=== PATIENT | male | born 1955 | race Two or more races ===

== ENCOUNTER 2024-05-04 15:52 | Inpatient (IN) | payer OTHER ==
[~2024-05-04] VITALS: Ht 180.3 cm; Wt 77.4 kg
[2024-05-04] MEDS: SODIUM CHLORIDE 0.9% 1,000 ML IVB ONE (16:07)
[2024-05-04 16:08] VITALS: PULSE 95; RESP 35; O2SAT 95
[2024-05-04 17:35] LABS: Chloride 112 mmol/L (98-107); Sodium 143 mmol/L (136-145)
[2024-05-04 17:36] LABS: Anion Gap 8 (5-15); Calcium 8.9 mg/dL (8.7-10.4); Carbon Dioxide 23 mmol/L (20-31)
[2024-05-04 17:41] LABS: BUN/Creatinine Ratio 17.4 (10.0-20.0); Blood Urea Nitrogen 30 mg/dL (9-23); Glucose 129 mg/dL (74-106)
[2024-05-04 17:42] LABS: Blood Alcohol < 3.0 mg/dL (<10)
[2024-05-04 17:45] LABS: Basophils # (auto) 0.1 10 ^3/uL (0-0.2); Basophils % (auto) 0.4 % (0.0-2.0); Eosinophils # (auto) 0 10 ^3/uL (0-0.8); Eosinophils % (auto) 0.2 % (0.0-7.0); Hematocrit 37.2 % (41.0-53.0); Hemoglobin 12.8 g/dL (13.5-17.5); Lymphocytes # (auto) 0.8 10 ^3/uL (0.4-5.4); Lymphocytes % (auto) 4.3 % (10.0-50.0); Mean Corpuscular Hemoglobin 31.1 pg (28.0-32.0); Mean Corpuscular Hgb Conc. 34.5 g/dL (32.0-36.0); Mean Corpuscular Volume 90.1 fL (80.0-100.0); Monocytes # (auto) 0.6 10 ^3/uL (0-1.3); Monocytes % (auto) 3.5 % (0.0-12.0); Neutrophils # (auto) 16.1 10 ^3/uL (1.6-8.6); Neutrophils % (auto) 91.6 % (37.0-80.0); Platelet Count (auto) 238 10^3/uL (140-450); Red Blood Cells 4.13 10^6/uL (4.5-5.90); Red Cell Distribution Width 14.1 % (11.8-14.3); White Blood Cell 17.6 10^3/uL (4.4-10.8)
[2024-05-04] MEDS ORDERED: ACETAMINOPHEN 325 MG TAB PO PRN (19:00)
[2024-05-04] MEDS: SODIUM CHLORIDE 0.9% 1,000 ML IV SCH (19:33)
[2024-05-04] MEDS ORDERED: hydrALAZINE HCL 20 MG/ML VL IV PRN (19:45)
[2024-05-04 20:00] VITALS: PULSE 67; RESP 19; O2SAT 96
[2024-05-04] MEDS: cefTRIAXone 1GM/50ML D5W 50 ML IV ONE (21:18)
[2024-05-04 22:22] VITALS: BP 167/61; PULSE 67; RESP 18; TEMP 97.7; O2SAT 96
[2024-05-05 07:34] LABS: Basophils # (auto) 0.1 10 ^3/uL (0-0.2); Basophils % (auto) 0.5 % (0.0-2.0); Eosinophils # (auto) 0.5 10 ^3/uL (0-0.8); Eosinophils % (auto) 4.7 % (0.0-7.0); Hematocrit 35.3 % (41.0-53.0); Hemoglobin 12.4 g/dL (13.5-17.5); Lymphocytes # (auto) 2.1 10 ^3/uL (0.4-5.4); Lymphocytes % (auto) 18.4 % (10.0-50.0); Mean Corpuscular Hemoglobin 31.5 pg (28.0-32.0); Mean Corpuscular Hgb Conc. 35.1 g/dL (32.0-36.0); Monocytes % (auto) 8.7 % (0.0-12.0); Neutrophils # (auto) 7.9 10 ^3/uL (1.6-8.6); Neutrophils % (auto) 67.7 % (37.0-80.0); Platelet Count (auto) 202 10^3/uL (140-450); Red Blood Cells 3.92 10^6/uL (4.5-5.90); Red Cell Distribution Width 13.7 % (11.8-14.3); White Blood Cell 11.6 10^3/uL (4.4-10.8)
[2024-05-05 07:43] LABS: Anion Gap 7 (5-15); Carbon Dioxide 24 mmol/L (20-31); Chloride 112 mmol/L (98-107); Potassium 3.5 mmol/L (3.5-5.1); Sodium 143 mmol/L (136-145)
[2024-05-05 07:44] LABS: Calcium 8.9 mg/dL (8.7-10.4)
[2024-05-05 07:49] LABS: BUN/Creatinine Ratio 16.2 (10.0-20.0); Blood Urea Nitrogen 21 mg/dL (9-23); Glucose 97 mg/dL (74-106)
[2024-05-05 08:00] VITALS: PULSE 68; RESP 18; O2SAT 98
[2024-05-05 09:28] VITALS: BP 156/88; PULSE 68; RESP 18; TEMP 98; O2SAT 98
[2024-05-05] MEDS: cefTRIAXone 1GM/50ML D5W 50 ML IV SCH (09:40)
[2024-05-05] MEDS ORDERED: ASPI-498 PO (10:02)
[2024-05-05] MEDS ORDERED: ATOR10TA PO (10:02)
[2024-05-05 13:42] VITALS: BP 155/96; PULSE 66; RESP 18; TEMP 98.1; O2SAT 99
[2024-05-05] MEDS ORDERED: FER325T PO (16:47)
[2024-05-05] MEDS ORDERED: PANT40TA2 PO (16:47)
[2024-05-05] MEDS ORDERED: ISO60SRT PO (16:47)
[2024-05-05] MEDS ORDERED: MULT1TAB95 PO (16:47)
[2024-05-05] MEDS ORDERED: MET50T PO (16:47)
[2024-05-05] MEDS ORDERED: ASCO500T11 PO (16:47)
[2024-05-05] MEDS ORDERED: ATOR80TA PO (16:48)
[2024-05-05 17:02] VITALS: BP 154/60; PULSE 63; RESP 18; TEMP 98.2; O2SAT 98
[2024-05-05 21:00] VITALS: BP 136/73; PULSE 68; RESP 18; TEMP 97.6; O2SAT 98
[2024-05-06 01:21] VITALS: BP 143/58; PULSE 63; RESP 19; TEMP 98.4; O2SAT 97
[2024-05-06 05:27] VITALS: BP 131/72; PULSE 65; RESP 18; TEMP 97.9; O2SAT 97
[2024-05-06 09:00] VITALS: BP 118/68; PULSE 68; RESP 18; TEMP 97.5; O2SAT 98
[2024-05-06 13:00] VITALS: BP 134/80; PULSE 86; RESP 18; TEMP 97.2; O2SAT 100
[2024-05-06 17:00] VITALS: BP 121/81; PULSE 75; RESP 18; TEMP 98.5; O2SAT 99
[2024-05-06 21:00] VITALS: BP 147/76; PULSE 75; RESP 18; TEMP 98.3; O2SAT 97
[2024-05-07 05:00] VITALS: BP 176/91; PULSE 69; RESP 19; TEMP 97.9; O2SAT 98
[2024-05-07 06:26] VITALS: BP 120/70
[2024-05-07 09:04] VITALS: BP 109/61; PULSE 78; RESP 18; TEMP 97.9; O2SAT 98
[2024-05-07 13:00] VITALS: BP 138/76; PULSE 76; RESP 19; TEMP 98; O2SAT 96
[2024-05-07 17:00] VITALS: BP 108/72; PULSE 87; RESP 19; TEMP 98; O2SAT 97
[2024-05-07 21:52] VITALS: BP 133/70; PULSE 72; RESP 19; TEMP 98.8; O2SAT 98
[2024-05-08 01:00] VITALS: BP 125/76; PULSE 66; RESP 19; TEMP 97.9; O2SAT 96
[2024-05-08 05:00] VITALS: BP 139/66; PULSE 61; RESP 19; TEMP 97.7; O2SAT 97
[2024-05-08 09:00] VITALS: BP 125/77; PULSE 77; RESP 18; TEMP 98.1; O2SAT 97
[2024-05-08 11:17] VITALS: TEMP 36.7
== END 2024-05-08 12:55 | disposition home or self-care (01) | DRG 871 ==
LOC: EDBD 15:52 → ER 15:52 → OVERFLOW 19:02 → CENTRAL 21:46
PROVIDERS: ADMIT Family Medicine; ATTEND Family Medicine
DX: A41.9 Sepsis, unspecified organism (principal); J15.9 Unspecified bacterial pneumonia; N17.9 Acute kidney failure, unspecified; E86.0 Dehydration; F17.210 Nicotine dependence, cigarettes, uncomplicated; J84.10 Pulmonary fibrosis, unspecified; I10 Essential (primary) hypertension; T67.5XXA Heat exhaustion, unspecified, initial encounter; Z86.73 Personal history of transient ischemic attack (TIA), and cerebral infarction without residual deficits; Z95.1 Presence of aortocoronary bypass graft; Z79.82 Long term (current) use of aspirin
CPT/HCPCS: 36415; 70450; 71045; 80048; 80320; 83605; 84484; 85025; 87040; G0378